=== PATIENT | female | born 1950 | race Two or more races ===

== ENCOUNTER 2025-01-07 19:40 | Emergency (ER) | payer MEDICAID, OTHER ==
[~2025-01-07] VITALS: Ht 147.3 cm; Wt 44.2 kg
--- NOTE | 2025-01-07 21:03 | ED.PDOC ---
History of Present Illness HPI Comments 74 year old female who came to ER for high blood pressure. Patient has history of hypertension and diabetes and dyslipidemia. Has good compliance to her medications. States she has been experiencing headaches and dizziness with nausea and vomiting yesterday. Noted her blood pressure was constantly elevated since then, SBP >170's REVIEW OF SYSTEMS: General: No fever, no chills, or fatigue HEENT: No sore throat, no earache, no congestion, no neck pain. Cardiac: No chest pain. No palpitations. Lungs: No shortness of breath, no cough. GI: (+) nausea, (+) vomiting, no diarrhea, no constipation, no abdominal pain : No dysuria, frequency, or urgency. No hematuria. Musculoskeletal: No joint pain , no joint swelling, no extremity edema. Skin: No rash, no itching. Neuro: (+) headache, (+) dizziness, no weakness EXAM: General: Awake, alert and oriented. Patient is actively vomiting Skin: Skin in warm, dry and intact. Appropriate color for ethnicity. HEENT: The head is normocephalic and atraumatic. Conjunctivae are clear without exudates or hemorrhage. Sclera is non-icteric. EOM are intact. No signs of nystagmus. Eyelids are normal in appearance without swelling or lesions. Oral mucosa is pink and moist Neck: The neck is supple with normal range of motion. No JVD. Cardiac: Heart rate and rhythm are normal. No murmurs, gallops, or rubs are auscultated. Respiratory: No signs of respiratory distress. Lung sounds are clear in all lobes bilaterally without rales, rhonchi, or wheezes. Abdominal: Abdomen is soft, non-tender without distention. Bowel sounds are present and normoactive in all four quadrants. Extremities: Upper and lower extremities are atraumatic in appearance without deformity or edema. Neurological: The patient is awake, alert and oriented to person, place, and time with normal speech. Speech is clear. There is no facial asymmetry. Psychiatric: Appropriate mood and affect. 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 Was a procedure done?: No Differential Dx Considerations may include: Differential diagnoses considered include but are not limited to temporal arteritis, acute angle closure glaucoma, encephalitis, bacterial meningitis, carbon monoxide poisoning, posttraumatic headache, SAH, subdural hematoma, cervical artery dissection, venous sinus thrombosis, CVA, migraine headache, cluster headache, tension headache, TMJ disorder, frontal sinusitis, cervical spondylosis, intracranial mass, pituitary apoplexy. X-Ray, Labs, Meds, VS Vital Signs Date Time Temp Pulse Resp B/P (MAP) Pulse Ox O2 Delivery O2 Flow Rate FiO2 01/07/25 21:47 97.5 78 20 150/69 (96) 97 97.5 01/07/25 19:48 97.0 96 16 160/46 97 97.0 Lab Test 01/07/25 22:05 01/07/25 21:14 Range/Units Troponin I High Sensitivity 4 3 L </=34 ng/L White Blood Count 11.4 H 4.4-10.8 10^3/uL Red Blood Count 4.43 4.0-5.20 10^6/uL Hemoglobin 14.1 12.2-16.2 g/dL Hematocrit 40.4 36.0-46.0 % Mean Corpuscular Volume 91.3 80.0-100.0 fL Mean Corpuscular Hemoglobin 31.9 28.0-32.0 pg Mean Corpuscular Hemoglobin Concent 34.9 32.0-36.0 g/dL Red Cell Distribution Width 12.0 11.8-14.3 % Platelet Count 506 H 140-450 10^3/uL Mean Platelet Volume 8.9 6.9-10.8 fL Neutrophils (%) (Auto) 73.7 37.0-80.0 % Lymphocytes (%) (Auto) 19.4 10.0-50.0 % Monocytes (%) (Auto) 5.4 0.0-12.0 % Eosinophils (%) (Auto) 0.9 0.0-7.0 % Basophils (%) (Auto) 0.6 0.0-2.0 % Neutrophils # (Auto) 8.4 1.6-8.6 10 ^3/uL Lymphocytes # (Auto) 2.2 0.4-5.4 10 ^3/uL Monocytes # (Auto) 0.6 0-1.3 10 ^3/uL Eosinophils # (Auto) 0.1 0-0.8 10 ^3/uL Basophils # (Auto) 0.1 0-0.2 10 ^3/uL Nucleated Red Blood Cells 0.0 % Sodium Level 134 L 136-145 mmol/L Potassium Level 4.6 3.5-5.1 mmol/L Chloride Level 98 98-107 mmol/L Carbon Dioxide Level 25 20-31 mmol/L Anion Gap 11 5-15 Blood Urea Nitrogen 9 9-23 mg/dL Creatinine 0.76 0.550-1.02 mg/dL Glomerular Filtration Rate Calc 83 >90 mL/min BUN/Creatinine Ratio 11.8 10.0-20.0 Serum Glucose 204 H 74-106 mg/dL Calcium Level 10.0 8.7-10.4 mg/dL B-Type Natriuretic Peptide 42.89 0-100 pg/mL Current Medications Medications (Trade) Dose Ordered Sig/Constantino Route Start Time Stop Time Status Last Admin Ondansetron HCl (Zofran) 4 mg ONCE ONCE IM 01/07/25 21:00 01/07/25 21:01 DC 01/07/25 22:12 Time of 1ST Reevaluation: 20:59 Reevaluation 1ST: Unchanged Patient Education/Counseling: Need For Follow Up Family Education/Counseling: Need For Follow Up SEPSIS Sepsis Screen Date sepsis recognized/suspect: Jan 07, 2025 Time Sepsis recognized/suspect: 1950 Recent Procedure: No On Antibiotic Therapy: No Respiratory Rate >20: No Heart Rate >90: No Temp<36 C (96.8 F) or >38.3 C: No SBP <90 or MAP <65 mmHG: No New Acute Mental Status Change: No Is the patient on CPAP, BIPAP,: No Physician Orders Head Without Contrast (01/07/25 20:48) Chest Xray 1 View (01/07/25 20:48) Ct Ab Pel Wo Con-No Oral Or Iv (01/07/25 20:48) Troponin-I Hs (01/07/25 23:48) Vital Signs Date Time Temp Pulse Resp B/P (MAP) Pulse Ox O2 Delivery O2 Flow Rate FiO2 01/07/25 21:47 97.5 78 20 150/69 (96) 97 97.5 01/07/25 19:48 97.0 96 16 160/46 97 97.0 Laboratory Tests Test 01/07/25 21:14 White Blood Count 11.4 10^3/uL (4.4-10.8) H Medications Medications Dose Ordered Sig/Constantino Route Start Time Stop Time Status Last Admin Dose Admin Ondansetron HCl 4 mg ONCE ONCE IM 01/07/25 21:00 01/07/25 21:01 DC 01/07/25 22:12 Departure 1 Departure Time of Disposition: 22:58 Impression: Primary Impression: Headache Additional Impressions: Nausea and vomiting Hyponatremia Leukocytosis Thrombocytosis Disposition: 01 HOME / SELF CARE / HOMELESS Condition: Stable Additional Instructions: INSTRUCCIONES DE HARSH DE Urgencias Instrucciones: Venessa atentamente todas las instrucciones proporcionadas en dahlia paquete. Aunque le hayan dado el harsh del Departamento de Emergencias, esto no significa que tenga un "certificado de buena mishel". Hoy no se dueñas realizado ningn diagnstico definitivo para suyapa sntomas. Es posible que ests en proceso de desarrollar saul enfermedad grave. Es por eso que debe regresar al servicio de urgencias sin falta si presenta algn sntoma nuevo o que empeora (especialmente si suyapa sntomas incluyen dolor en el pecho, dificultad para respirar, dolor abdominal, fiebre, dolor de zohreh, confusin, dificultad para aislinn o caminar). Tambin es muy importante que consulte a un mdico de atencin primaria dentro de los prximos 1 a 3 woods para realizar un seguimiento. Si no puede conseguir saul rica, regrese al servicio de urgencias para saul nueva evaluacin. A continuacin se incluye saul copia del informe de la tomografa computarizada de bowers zohreh. Dolor de zhoreh por migraa: instrucciones de cuidado Descripcin general Las migraas son syd de zohreh punzantes y dolorosos que suelen comenzar en un lado de la zohreh. Pueden causar nuseas y vmitos y hacer que el paciente se vuelva sensible a la leonela, los sonidos o los olores. Sin tratamiento, las migraas pueden durar desde 4 horas hasta algunos woods. Los medicamentos pueden ayudar a prevenir las migraas o detenerlas saul vez que hayan comenzado. Bowers mdico puede ayudarlo a encontrar los que funcionan mejor para usted. El seguimiento mdico es saul parte fundamental de bowers tratamiento y bowers seguridad. Asegrese de programar y acudir a todas las citas, y llame a bowers mdico si tiene problemas. Tambin es saul buena idea saber los resultados de suyapa pruebas y llevar saul lista de los medicamentos que jc. Car Bracer puedes cuidarte en casa? No conduzca si dueñas tomado algn analgsico recetado. Descanse en saul habitacin tranquila y oscura hasta que desaparezca el dolor de zohreh. Cierre los ojos e intente relajarse o dormir. No deven televisin ni venessa. Coloque un adama hmedo y fro o saul compresa fra sobre la vijaya dolorida corey 10 a 20 minutos cada vez. Coloque un adama torin entre la compresa fra y la piel. Utilice saul toalla tibia y hmeda o saul almohadilla trmica a temperatura baja para relajar los msculos tensos de los hombros y el marc. Pdale a alguien que le masajee suavemente el marc y los hombros. [place] suyapa medicamentos exactamente javier le hayan recetado. Llame a bowers mdico si sylvie que tiene un problema con bowers medicamento. Recibir ms detalles sobre los medicamentos especficos que le recete bowers mdico. No tome medicamentos para el dolor de zohreh con demasiada frecuencia. Hable con bowers mdico si est tomando medicamentos ms de 2 woods a la semana para aliviar el dolor de zohreh. Aden demasiados analgsicos puede provocar ms syd de zohreh. Estos se denominan syd de zohreh por uso excesivo de medicamentos. Para prevenir las migraas Lleva un diario de tus syd de zohreh para que puedas identificar qu los desencadena. Evitar los desencadenantes puede ayudarte a prevenirlos. Registra cundo comenz cada dolor de zohreh, cunto dur y wind turbine design engineer fue. Anota cualquier ot ro sntoma que hayas tenido junto con el dolor de zohreh, javier nuseas, luces intermitentes o manchas oscuras, o sensibilidad a la leonela brillante o a los ruidos thu. Anota si el dolor de zohreh se produjo cerca de tu perodo. Haz saul lista de todo lo que podra benjamin desencadenado el dolor de zohreh. Los desencadenantes pueden incluir ciertos alimentos (chocolate, queso, vino) u olores, humo, leonela brillante, estrs o falta de sueo. Si bowers mdico le dueñas recetado medicamentos para las migraas, tmelos segn las indicaciones. Puede aden medicamentos solo cuando le d migraa y medicamentos que tome todo el tiempo para ayudar a prevenir las migraas. Si bowers mdico le dueñas recetado un medicamento para cuando le duele la zohreh, tmelo ante la primera seal de migraa, a menos que le haya dado otras instrucciones. Si bowers mdico le dueñas recetado medicamentos para prevenir las migraas, tmelos exactamente javier se lo indiquen. Llame a bowers mdico si sylvie que tiene un problema con bowers medicamento. Busque formas saludables de lidiar con el estrs. Las migraas son ms comunes corey o inmediatamente despus de perodos estresantes. Intente encontrar formas de reducir el estrs, javier practicar la atencin plena o ejercicios de respiracin profunda. Duerma radha y virginie ejercicio, myrna tenga cuidado de no esforzarse demasiado corey el ejercicio, ya que puede provocarle dolor de zohreh. Siga un horario regular para comer. Evite los alimentos y las bebidas que suelen desencadenar migraas, javier el chocolate, el alcohol (especialmente el vino tinto y el oporto), el aspartamo, el glutamato monosdico (GMS) y algunos aditivos presentes en los alimentos (javier los perritos calientes, el tocino, los embutidos, los quesos curados y los encurtidos). Limite la cafena. No tome demasiado caf, t o refrescos, myrna no deje de aden cafena de repente, ya que tambin puede provocarle migraas. No fume ni permita que otras personas fumen cerca de usted. Si necesita ayuda para dejar de fumar, hable con bowers mdico sobre programas y medicamentos para dejar de fumar. Estos pueden aumentar suyapa probabilidades de dejar de fumar para siempre. Si est tomando pldoras anticonceptivas o terapia hormonal, hable con bowers mdico sobre si swati son las causas de suyapa migraas. Cundo debes pedir ayuda? Llame al 911 en cualquier momento en que considere que puede necesitar atencin de emergencia. Por ejemplo, llame si: Tiene sntomas de un accidente cerebrovascular, que pueden incluir: Entumecimiento repentino, parlisis o debilidad en la osbaldo, el brazo o la pier na, especialmente en un solo lado del cuerpo. Cambios repentinos en la visin. Dificultad repentina para hablar. Confusin repentina o dificultad para comprender afirmaciones simples. Problemas repentinos con la marcha o el equilibrio. Un dolor de zohreh repentino y gregorio que es diferente a los syd de zohreh anteriores. Llame a bowers mdico ahora o busque atencin mdica inmediata si: Tienes fiebre y el marc rgido. Tu dolor de zohreh empeora mucho. Preste atencin a los cambios en bowers mishel y asegrese de comunicarse con bowers mdico si: Suyapa syd de zohreh empeoran, ocurren con ms frecuencia o cambian de alguna manera. Tienes nuevos sntomas. Tu marcelino se ve alterada por tus syd de zohreh. Por ejemplo, a menudo faltas al trabajo, a la escuela o a otras actividades. No mejoras javier esperabas Crditos para la migraa: instrucciones de cuidado Actualizado al: 3 de mbre 2023 Autor: Personal de [facility] Junta de revisin clnica Toda la educacin de [facility] es revisada por un equipo que incluye mdicos, enfermeras, profesionales avanzados, dietistas registrados y otros profesionales de la mishel. PROCEDURE(s): HWOCT - HEAD WITHOUT CONTRAST REASON: Headache, vomiting, elevated blood pressure ORDER NUMBER(s): [id number], ACCESSION NUMBER(s): [id number] CLINICAL HISTORY: Headache, vomiting, elevated blood pressure TECHNIQUE: Helical imaging carried out from skull base to vertex without intravenous contrast. This exam was performed according to our departmental dose optimization program. Up-to-date CT equipment and radiation dose reduction techniques are utilized as appropriate. 51.43 CTDIVol: 51.53 mGy DLP: 910.79 mGy-cm WID: COMPARISON: None FINDINGS: Mild cerebral volume loss with concordant prominence of the subarachnoid spaces and ventricles. There is a small chronic infarct in the right frontal lobe. Mild patchy low attenuation in the cerebral white matter consistent with nonspecific white matter disease. Incidental bilateral basal ganglia calcifications. There is no midline shift or mass effect. The shah white matter interfaces are maintained. The basal cisterns are patent. There is no evidence of acute intracranial hemorrhage or extra-axial fluid collection. The mastoid air cells and visualized paranasal sinuses are well-aerated aside from mucosal thickening of the left sphenoid sinus. IMPRESSION: 1. No acute intracranial abnormality. 2. Mild cerebral volume loss and mild chronic microvascular ischemic change. 3. 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 Comments 74-year-old female who presents to the emergency department with nausea, vo miting and headache Lab and imaging results reviewed. Not urgently actionable. Discussed with the patient and her family member the results. Patient was offered admission for further treatment, observation and evaluation. Discussed risks, benefits and return precautions with the patient. Patient reports she is feeling improved. The patient has declined admission and is requesting to be discharged home to follow up with the primary care provider as an outpatient. Extensive evaluation was performed in attempt to identify or rule out: (See differential diagnosis section) The following tests were ordered, and results were reviewed by me and discussed with patient: (See diagnostic results section) The following test were independently interpreted by me: N/A I reviewed and agreed with the following test results read by other providers: N/A I reviewed the following notes from the pt's past medical encounters: N/A Additional information was gathered from interviewing the following independent historians: N/A Discussion of management or test interpretation with external physician/other qualified health customer care manager: N/A Addressed [ ]one or more chronic illnesses with severe exacerbation, progression, or side effects of treatment: [ ]an acute or chronic illness that poses a threat to life or bodily function: [ ] Decision regarding hospitalization or escalation of hospital level of care: Risk and benefits of admission for further treatment of patient's condition was considered. Due to patient's current clinical condition, high risk of decline and poor outcome if discharged and need for further inpatient management and monitoring, patient will be admitted to the hospital. Discussed with patient. Drug therapy requiring intensive monitoring for toxicity: N/A Parenteral controlled substances: N/A Decision regarding elective major surgery with identified patient or procedure risk factors: N/A Decision regarding emergency major surgery: N/A Decision not to resuscitate or to de-escalate care because of poor prognosis: N/A Diagnosis or treatment significantly limited by social determinants of health: N/A Decision regarding hospitalization or escalation of hospital level of care: R isks and benefits of admission for further treatment of patient's condition was considered however due to patient's stable condition patient will be discharged to follow up closely or return to care for worsening of condition or inability to follow up. Critical Care Note Critical Care Time?: No Stability Stability form required: No Heart Score Heart Score: Heart Score Response (Comments) Value History N/A 0 EKG N/A 0 Age N/A 0 Risk Factors N/A 0 Troponin N/A 0 Total 0 I personally scribed for KAITLIN ALAS MD ([email or web address]) on 01/07/25 at 21:03. Electronically submitted by Scott Cummings ([email or web address]). KAITLIN ALAS MD Jan 07, 2025 21:03
--- NOTE | 2025-01-07 21:20 | DVH ---
EXAM: XY CHEST XRAY 1 VIEW HISTORY: Headache, vomiting, elevated blood pressure TECHNIQUE: 1 view of the chest COMPARISON: None FINDINGS/IMPRESSION: LUNGS: No pleural effusion, consolidation, or pneumothorax MEDIASTINUM: Unremarkable BONES: No acute osseous abnormality OTHER: None
[2025-01-07 21:23] LABS: Hematocrit 40.4 % (36.0-46.0); Hemoglobin 14.1 g/dL (12.2-16.2); Mean Corpuscular Hemoglobin 31.9 pg (28.0-32.0); Mean Corpuscular Volume 91.3 fL (80.0-100.0); Nucleated Red Blood Cells % 0.0 %
[2025-01-07 21:33] LABS: Chloride 98 mmol/L (98-107); Potassium 4.6 mmol/L (3.5-5.1)
[2025-01-07 21:34] LABS: Anion Gap 11 (5-15); Calcium 10.0 mg/dL (8.7-10.4); Carbon Dioxide 25 mmol/L (20-31)
[2025-01-07 21:39] LABS: BUN/Creatinine Ratio 11.8 (10.0-20.0)
--- NOTE | 2025-01-07 21:40 | DVH ---
Exam: CT CT AB PEL WO CON-NO ORAL OR IV History: Vomiting, epigastric pain Comparison Study: None Technique: Multidetector spiral CT of the abdomen was performed from lung bases to pubic symphysis. I maging was performed without IV contrast. Axial, coronal and sagittal multiplanar reformats were obta ined from the axial data set by the technologist. Radiation dose : 1. Abdomen/Pelvis: CTDIvol my .07 mGy, DLP 274.68 mGy*cm. Findings: Evaluation of solid organs is limited due to lack of intravenous contrast use. Lung Bases: No acute or significant lung base finding. Normal heart size. No pleural or pericardial effusion. Liver: The liver is normal in size. No focal lesions. Gallbladder and biliary Tree: Unremarkable Spleen: Unremarkable Pancreas: The pancreas is grossly normal in appearance. Adrenal Glands: Unremarkable Kidneys: Kidneys are grossly normal without calculi or hydronephrosis. Bladder: Grossly unremarkable for degree of distention. Bowel: Large left ventral hernia containing multiple loops of large and small bowel. No obstruction o r inflammatory changes. Ascites: Absent Lymphadenopathy: No mesenteric, retroperitoneal or periportal lymphadenopathy. Abdominal wall and Mesentery: Unremarkable. Vasculature: The visualized abdominal aorta is normal in size and caliber. Evaluation of abdominal a nd pelvic vessels is limited due to lack of intravenous contrast. Pelvic Organs: Unremarkable Musculoskeletal: No aggressive focal bony lesions, acute fractures or dislocation. IMPRESSION: Large left ventral hernia containing multiple loops of large and small bowel without obstruction or i nflammatory changes. Radiation optimization: All CT scans at this facility use at least one of these dose optimization breanne hniques: automated exposure control mA and/or kV adjustment per patient size (includes targeted exam s where dose is matched to clinical indication) or iterative reconstruction.
[2025-01-07 21:43] LABS: Blood Urea Nitrogen 9 mg/dL (9-23); Glucose 204 mg/dL (74-106); Sodium 134 mmol/L (136-145)
[2025-01-07 21:47] VITALS: BP 150/69; PULSE 78; RESP 20; TEMP 97.5; O2SAT 97
--- NOTE | 2025-01-07 21:55 | DVH ---
CLINICAL HISTORY: Headache, vomiting, elevated blood pressure TECHNIQUE: Helical imaging carried out from skull base to vertex without intravenous contrast. This e xam was performed according to our departmental dose optimization program. Up-to-date CT equipment an d radiation dose reduction techniques are utilized as appropriate. 51.43 CTDIVol: 51.53 mGy DLP: 910.79 mGy-cm WID: COMPARISON: None FINDINGS: Mild cerebral volume loss with concordant prominence of the subarachnoid spaces and ventricles. There is a small chronic infarct in the right frontal lobe. Mild patchy low attenuation in the cerebral wh ite matter consistent with nonspecific white matter disease. Incidental bilateral basal ganglia calci fications. There is no midline shift or mass effect. The shah white matter interfaces are maintained. The basal cisterns are patent. There is no evidence of acute intracranial hemorrhage or extra-axial fluid mio ection. The mastoid air cells and visualized paranasal sinuses are well-aerated aside from mucosal th ickening of the left sphenoid sinus. IMPRESSION: 1. No acute intracranial abnormality. 2. Mild cerebral volume loss and mild chronic microvascular ischemic change. 3. 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
[2025-01-07] MEDS: ONDANSETRON HCL 4 MG/2 ML VIAL IM ONE (22:12)
[2025-01-07] MEDS: ACETAMINOPHEN 500 MG TAB or CAP PO ONE (22:13)
== END 2025-01-08 01:28 | disposition home or self-care (01) ==
LOC: ER 19:40
DX: I10 Essential (primary) hypertension (principal); E87.1 Hypo-osmolality and hyponatremia; D72.829 Elevated white blood cell count, unspecified; D75.839 Thrombocytosis, unspecified; E11.9 Type 2 diabetes mellitus without complications; E78.5 Hyperlipidemia, unspecified; E03.9 Hypothyroidism, unspecified; Z86.73 Personal history of transient ischemic attack (TIA), and cerebral infarction without residual deficits; Z90.710 Acquired absence of both cervix and uterus; Z98.890 Other specified postprocedural states
CPT/HCPCS: 36415; 70450; 71045; 74176; 80048; 83880; 84484; 85025; 96372; 99285; J2405